=== PATIENT | female | born 1990 | race Caucasian/White ===

== ENCOUNTER 2017-06-18 10:31 | Emergency (ER) | payer OTHER, SELFPAY ==
[2017-06-18 10:32] VITALS: BP 130/84; PULSE 85; RESP 18; TEMP 36.6; O2SAT 98; BMI 20.9
--- NOTE | 2017-06-18 10:53 | CT_ITS ---
STUDY: CT ABDOMEN AND PELVIS WITHOUT CONTRAST REASON FOR EXAM: Female, 27 years old. Left lower quadrant pain RADIATION DOSAGE (If Supplied By Facility): CTDIvol = ( 6.04 ) mGy, DLP = ( 286.91 ) mGycm TECHNIQUE: Transaxial images were obtained from the dome of the diaphragm to the symphysis pubis without oral contrast, and without intravenous contrast. Sagittal and coronal images were reconstructed. Individualized dose optimization techniques were used for this CT. COMPARISON: None. FINDINGS: The visualized lung bases are unremarkable. The visualized portions of the heart are within normal limits. Normal liver. Normal gallbladder and extrahepatic biliary system. Normal spleen. Normal pancreas. Normal bilateral adrenal glands. Normal right kidney. Mild to moderate left hydronephrosis with a stone left UPJ measuring 7 x 5 mm. Additional stones in the left kidney, largest measuring 6.3 mm. No discrete evidence of stone in the distal left ureter. Normal visualized stomach. Normal small intestine. Normal colon. The appendix is visualized and appears normal. Normal abdominal aorta. Normal inferior vena cava. Normal retroperitoneum. Normal urinary bladder. Normal visualized uterus. IUD in the endometrium. Normal abdominal wall. Normal osseous structures. CT/Abdomen/Pelvis without Cont IMPRESSION: Left-sided mild to moderate hydronephrosis with prominent stone in left UPJ. Additional left-sided nephroliths are noted. Electronically Signed: Maycol Hodges DO at 12:13 EST Tel , Service support ,
[2017-06-18 11:37] LABS: Pregnancy, Serum, hCG Quali. NEGATIVE Negative (0-9 Nonpreg)
[2017-06-18 13:16] LABS: Mucous, Urine 0 SEEN /hpf (<or=2+)
[2017-06-18 13:17] LABS: Color, Urine Yellow (Yellow); Glucose, Dipstick Normal (Normal); Ketone-Dipstick 50 mg/dl (Negative); Leukocyte Esterase-Dipstick 25 /ul (Negative); Nitrite-Dipstick Negative (Negative); Occult Blood-Urine 250 /ul (Negative); Protein-Dipstick 30 mg/dl (Negative); Urine Bilirubin Dipstick Negative (Negative); Urine Clarity Clear (Clear); Urine Urobilinogen Normal (Normal)
[2017-06-18 13:41] LABS: Bacteria 1+ /hpf (None Seen); Red Blood Cells-Urine 5-10 SEEN /hpf (0-5); Squamous Epithelial Cells - UA 0-5 SEEN /hpf (5-10); White Blood Cells 0-5 SEEN /hpf (0-5)
[2017-06-18 15:06] VITALS: BP 96/52; PULSE 68; RESP 18; O2SAT 98
--- NOTE | 2017-06-18 15:16 | ED.VISSUMM ---
- ER Visit Summary Date of Service: 06/18/17 Chief Complaint: Left flank left lower quadrant abdominal pain. History of Present Illness: The patient is a 27 F no senior past medical or surgical history. No history of kidney stones. She had similar pain in her left lower quadrant several months ago her [employer] did a pelvic ultrasound which was negative. No signs of ovarian cyst. She denies any vaginal bleeding or discharge other than she is currently coming off her period. She denies any dysuria. She has had nausea vomiting. She states for months she has had some intermittent left flank pain. She denies any fever. Denies any trauma. She denies any prior history of kidney stones. Physical Examination: Vital signs are stable afebrile. HEENT exam unremarkable. Neck nontender no lymphadenopathy. Lungs clear to auscultation bilaterally. Heart rate rate and rhythm no murmur. Abdomen soft nontender nondistended no organomegaly masses except she has very minimal tenderness in the left lower quadrant. No hernias no masses. Extremities she moves all 4. Neurovascular intact. Back exam nontender. Neurologic exam normal. Test Results: UA shows 5-10 red cells otherwise unremarkable. Serum test is negative. Flank shows a large 7 x 5 mm UPJ stone on the left with left renal stones. There is also hydronephrosis. Emergency Department Course and Treatment: Patient doing much better. 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 On repeat exam she is doing well at 1515 will be discharged home. I did go over all test with the patient and her family. She will be written for Toradol for pain and instructed to follow-up with Dr. Sanju castellon of urology. Treatment Plan: Toradol for pain. Follow-up with urology. Disposition: Discharge Impression: Acute left flank pain secondary to 7 mm left UPJ stone with hydronephrosis. This note was generated with [employer] dictation software. It may contain incorrect words, spelling, and punctuation that were not noted in review of the chart prior to signing ED Disposition - Plan for ED Patient: Chief Complaint: Abd Pain Referrals: Giuseppe Aguilar DO [Primary Care Provider] -
--- NOTE | 2017-06-18 15:20 | ED.DCSUM_ITS ---
- ER Visit Summary Date of Service: 06/18/17 Chief Complaint: Left flank left lower quadrant abdominal pain. History of Present Illness: The patient is a 27 F no senior past medical or surgical history. No history of kidney stones. She had similar pain in her left lower quadrant several months ago her [employer] did a pelvic ultrasound which was negative. No signs of ovarian cyst. She denies any vaginal bleeding or discharge other than she is currently coming off her period. She denies any dysuria. She has had nausea vomiting. She states for months she has had some intermittent left flank pain. She denies any fever. Denies any trauma. She denies any prior history of kidney stones. Physical Examination: Vital signs are stable afebrile. HEENT exam unremarkable. Neck nontender no lymphadenopathy. Lungs clear to auscultation bilaterally. Heart rate rate and rhythm no murmur. Abdomen soft nontender nondistended no organomegaly masses except she has very minimal tenderness in the left lower quadrant. No hernias no masses. Extremities she moves all 4. Neurovascular intact. Back exam nontender. Neurologic exam normal. Test Results: UA shows 5-10 red cells otherwise unremarkable. Serum test is negative. Flank shows a large 7 x 5 mm UPJ stone on the left with left renal stones. There is also hydronephrosis. Emergency Department Course and Treatment: Patient doing much better. 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 On repeat exam she is doing well at 1515 will be discharged home. I did go over all test with the patient and her family. She will be written for Toradol for pain and instructed to follow-up with Dr. Sanju castellon of urology. Treatment Plan: Toradol for pain. Follow-up with urology. Disposition: Discharge Impression: Acute left flank pain secondary to 7 mm left UPJ stone with hydronephrosis. This note was generated with [employer] dictation software. It may contain incorrect words, spelling, and punctuation that were not noted in review of the chart prior to signing ED Disposition - Plan for ED Patient: Chief Complaint: Abd Pain Referrals: Giuseppe Aguilar DO [Primary Care Provider] -
--- NOTE | 2017-06-18 15:20 | ED.DEP ---
ED Disposition - Plan for ED Patient: Disposition: Home or Assisted Living Chief Complaint: Abd Pain Instructions: ED Stone Renal W Colic Prescriptions: Ketorolac [Toradol] 10 mg PO Q4H #15 tab Referrals: Brian Wade MD [STAFF PHYSICIAN] - Additional Instructions: Follow-up with Dr. Sanju Wade of urology for further evaluation and possible lithotripsy or other procedures to help you pass that stone. You have a 7 mm stone high in the left ureter just past the kidney. Toradol for pain. Return if intractable pain, fever or vomiting.
[2017-06-18 15:28] VITALS: RESP 16
--- NOTE | 2017-06-18 15:29 | ED.RN ---
REVIEWED D/C INSTRUCTIONS, FOLLOW UP CARE, PRESCRIPTION, AND S/S THAT WOULD WARRANT A RETURN TO THE ED WITH PT. PT VERBALIZED AN UNDERSTANDING AND DENIES FURTHER QUESTIONS FOR THIS RN. PT SKIN P/W/D, RESP EVEN AND UNLABORED, PT A&O X 3, NO DISTRESS NOTED. PT AMBULATED OUT OF ED, GAIT STEADY.
== END 2017-06-18 15:30 | disposition home or self-care (01) ==
PROVIDERS: Emergency Provider Emergency Medicine; Family Provider Student in an Organized Health Care Education/Training Program; PCP Student in an Organized Health Care Education/Training Program
DX: N13.2 Hydronephrosis with renal and ureteral calculous obstruction (principal); Z97.5 Presence of (intrauterine) contraceptive device
CPT/HCPCS: 74176; 81001; 84703; 99283; A4216

== ENCOUNTER 2017-06-24 13:44 | Day surgery (SDC) | payer OTHER, SELFPAY ==
[2017-06-24] VITALS (7 sets, daily range): BP systolic 121–154; BP diastolic 65–92; PULSE 62–83; RESP 14–16; TEMP 36.1–36.8; O2SAT 93–100; BMI 21.1
--- NOTE | 2017-06-24 13:30 | RAD_ITS ---
STUDY: X-RAY - ABDOMEN/PELVIS REASON FOR EXAM: Female, 27 years old. Kidney stones. Pre-ESWL. TECHNIQUE: Two AP supine views of the abdomen and pelvis. COMPARISON: Comparison is made with prior CT scan abdomen dated June 18, 2017. FINDINGS: Normal visualized lung bases. There is a moderate amount of colonic fecal material. There is a 3.5 mm calculus in the region of the left renal pelvis. IUD seen in the pelvis. Normal visualized osseous structures. RAD/Abdomen Single View IMPRESSION: 3.5 mm calculus in the midportion of the left kidney most likely within the left renal pelvis. Electronically Signed: Art Donohue MD at 14:34 EDT Tel [phone], Service support ,
[2017-06-24 14:18] LABS: Internal QC Validated? YES +Cl - CLEAR BKGD; Pregnancy, Urine Negative Negative
[2017-06-24] MEDS: Cefazolin 2 GM in 0.9% Normal Saline 100 ML IV (16:48)
[2017-06-24] MEDS: Ketorolac 15 MG/ML Vial IV (17:58)
--- NOTE | 2017-06-24 17:59 | PCM.DC.URO ---
Discharge Diet: Light diet - advance as tolerated Discharge Activity: May not drive while taking narcotic pain medications. Return to work on:: 06/26/17 May shower in (days): 1 Call your doctor if your incision/area has: Continuous Slow Oozing, Sudden Increased Bleeding, Increased Pain/ Swelling, Increased Redness, Foul Smelling Discharge, Swelling at the incision site Instructions: Shock Wave Lithotripsy Allergies/Adverse Reactions: Allergies No Known Allergies Allergy (Verified 06/22/17 16:13) Medications to take at Discharge Ketorolac [Toradol] 10 mg PO Q4H #15 tab 06/18/17 Levonorgestrel [Mirena] 1 each IY X1 06/18/17 Oxycodone HCl/Acetaminophen [Percocet 2.5-325 mg Tablet] 1 tab PO Q6H PRN PRN 5 Days #20 tab 06/24/17 Phenazopyridine [Pyridium] 100 mg PO TID #20 tab 06/24/17 Tamsulosin HCl [Flomax] 0.4 mg PO DAILY #10 cap 06/24/17 The following prescriptions were given: Oxycodone HCl/Acetaminophen [Percocet 2.5-325 mg Tablet] 1 tab PO Q6H PRN PRN 5 Days #20 tab PRN Reason: Pain Tamsulosin HCl [Flomax] 0.4 mg PO DAILY #10 cap Phenazopyridine [Pyridium] 100 mg PO TID #20 tab Primary Care Physician: Giuseppe Aguilar DO [Primary Care Provider] - Please Follow Up With: Brian Wade MD - call if need to change appt. When: Follow up next thrusday morning at 10am, get xray first.
--- NOTE | 2017-06-25 07:21 | OP.PCM_ITS ---
Problem List (1) Renal calculus, left Status: Acute Report of Operation Date of Procedure: 06/24/17 Pre-Operative Diagnosis: Left renal calculi ?2 Post-Operative Diagnosis: Same Surgery/Procedure Performed:: Cystoscopy and left stent placement and left extracorporeal shockwave lithotripsy Description of Surgical Findings:: 27-year-old female presented to the office with an obstructing stone in the left ureteropelvic junction about 8 mm also has another stone in the lower pole the left kidney about 8-9 mm. Today she presents to the hospital for shockwave lithotripsy possible stent placement. 27-year-old female taken back to the operating room after smooth induction of general anesthesia we used the fluoroscope to identify the stones in the left kidney we could see 2 stones each about 8-9 mm in the UPJ in the lower pole the left kidney because of the amount of stone burden I decided to go ahead and place a stent. The urethra and vaginal area were prepped and draped in usual sterile fashion, I went into the bladder with a 21 [place] rigid cystourethroscope identified the left ureteral orifice advanced a wire up the left kidney the wire curled in the left renal pelvis and then over the wire advanced stent 6 [place] by 24 cm stent left the string on the stent for extraction in a few days. The bladder was emptied. We then turned our attention to the stones in the kidney we localize the stone to the F2 focal point of the shockwave machine and then we delivered a total of 3000 shockwaves to the 2 stones. The stones appeared to break up successfully with the treatment. Patient's anesthesia was reversed and she was taken back to the PACU in good condition plan is to see her next week with an x-ray the x-ray looks good, we will remove the stent. Type of Anesthesia:: General Drains: stent - Admit VTE Documentation VTE Present on Admission: No VTE Mechan Device Prophylaxis: SCD's VTE Pharm Prophylaxis ordered?: No Reason prophylaxis not ordered:: Treatment Not Indicated
== END 2017-06-24 19:55 | disposition home or self-care (01) ==
LOC: SDC 13:45 → AC 13:47
PROVIDERS: Anesthesiology; Family Provider Student in an Organized Health Care Education/Training Program; PCP Student in an Organized Health Care Education/Training Program; Visit Provider Urology
PROC: (CPT 50590; principal; 2017-06-24 15:50)
DX: N20.0 Calculus of kidney (principal); Z87.442 Personal history of urinary calculi
CPT/HCPCS: 00872; 50590; 52332; 74018; 81025; J7120; C1769; C2617; J2405

== ENCOUNTER → 2017-07-02 08:05 | Outpatient (CLI) | payer OTHER, SELFPAY ==
--- NOTE | 2017-07-02 08:07 | RAD_ITS ---
STUDY: X-RAY - ABDOMEN/PELVIS REASON FOR EXAM: Female, 27 years old. Flank pain TECHNIQUE: Single AP view of the abdomen / pelvis. COMPARISON: None. FINDINGS: Normal visualized lung bases. Left ureteral stent is seen in good position. An IUD is seen in good position. There is an unremarkable bowel gas pattern. There is no demonstrated free abdominal air. The visualized liver, spleen and kidneys are grossly normal in size and morphology. Normal soft tissue structures. Normal visualized osseous structures. RAD/Abdomen Single View IMPRESSION: Normal x-ray examination of the abdomen and pelvis. Electronically Signed: iRos Chavez MD at 8:58 EDT Tel , Service support ,
== END ==
LOC: RAD.FUTURE 08:05 → RAD 08:12
PROVIDERS: Family Provider Student in an Organized Health Care Education/Training Program; PCP Student in an Organized Health Care Education/Training Program; Visit Provider Urology
DX: N20.0 Calculus of kidney (principal)
CPT/HCPCS: 74018

== ENCOUNTER → 2017-07-02 11:53 | Outpatient (CLI) | payer OTHER, SELFPAY ==
[2017-07-10 16:10] LABS: Ca Oxalate, Dihydrate 55 % (.); Ca Oxalate, Monohydrate 40 % (.)
== END ==
PROVIDERS: Family Provider Student in an Organized Health Care Education/Training Program; PCP Student in an Organized Health Care Education/Training Program; Visit Provider Urology
DX: N20.9 Urinary calculus, unspecified (principal)
CPT/HCPCS: 82360

== ENCOUNTER → 2017-12-17 08:22 | Outpatient (CLI) | payer OTHER, SELFPAY ==
[2017-12-17 11:28] LABS: Anion Gap 7 (5-15); BUN 16 mg/dL (7-18); BUN/Creat Ratio 18.8 RATIO (10-20); Calcium,Total 8.9 mg/dL (8.5-10.1); Chloride 106 mmol/L (98-107); Creatinine, Serum 0.85 mg/dL (0.55-1.02); EST Glomerular Filtration Rate 86 mL/min (>60); Est Glom Filt Rate - Afr Amer 104 mL/min (>60); Glucose 75 mg/dL (74-106); Sodium Level 143 mmol/L (136-145)
== END ==
PROVIDERS: Family Provider Student in an Organized Health Care Education/Training Program; PCP Student in an Organized Health Care Education/Training Program; Visit Provider Nurse Practitioner Adult Health
DX: N20.0 Calculus of kidney (principal)
CPT/HCPCS: 36415; 74018; 80048